=== PATIENT | female | born 1950 | race Caucasian/White ===

== ENCOUNTER → 2018-03-19 | Outpatient (REF) | payer BC, OTHER | LOC: M SFHCPLAZ 17:03 | PROVIDERS: ATTEND Dermatology | DX: C44.320 Squamous cell carcinoma of skin of unspecified parts of face (principal) ==

== ENCOUNTER → 2018-05-05 | Outpatient (REF) | payer OTHER, MEDICARE | LOC: M SFHCPLAZ 09:36 | PROVIDERS: ATTEND Dermatology | DX: D23.39 Other benign neoplasm of skin of other parts of face (principal) ==

== ENCOUNTER → 2018-08-17 | Outpatient (REF) | payer MEDICARE | LOC: M SFHCPLAZ 13:43 | PROVIDERS: ATTEND Dermatology | DX: D22.39 Melanocytic nevi of other parts of face (principal); D22.5 Melanocytic nevi of trunk; L57.0 Actinic keratosis ==

== ENCOUNTER → 2021-08-06 | Outpatient (CLI) | payer MEDICARE ==
[~2021-08-06] MED LIST: ASCO500T PO; BETI1SOL; FISH1CAP26; LUTE6CAP2; META0.52; MONT10TA97; MULT-40; VITA1TAB26; VYZU0.02
== END ==
LOC: M LABSMTC 09:47
PROVIDERS: ATTEND Anesthesiology
DX: Z01.812 Encounter for preprocedural laboratory examination (principal); Z20.822 Contact with and (suspected) exposure to COVID-19

== ENCOUNTER 2021-08-10 06:37 | Day surgery (SDC) | payer MEDICARE ==
[~2021-08-10] VITALS: Ht 171.4 cm; Wt 57.6 kg
[~2021-08-10 06:37] MED LIST changes: +NS 1,000 ML IV ONE
[2021-08-10] MEDS ORDERED: propofoL 200 MG/20 ML VIAL As Ordered ONE (07:31)
[2021-08-10] MEDS ORDERED: LIDOCAINE 2% 100MG/5ML SDV (FOR ANES.) As Ordered ONE (07:31)
[2021-08-10 08:15] VITALS: BP 114/67
== END 2021-08-10 08:24 | disposition home or self-care (01) ==
LOC: M OPP 06:37
PROVIDERS: ATTEND Internal Medicine Gastroenterology
DX: Z12.11 Encounter for screening for malignant neoplasm of colon (principal); K64.0 First degree hemorrhoids; Z79.899 Other long term (current) drug therapy; Z87.19 Personal history of other diseases of the digestive system

== ENCOUNTER → 2021-12-06 | Outpatient (REF) | payer MEDICARE ==
[~2021-12-06] MED LIST changes: -NS 1,000 ML IV ONE
== END ==
LOC: M LAB REF 09:14
PROVIDERS: ATTEND Internal Medicine Gastroenterology
DX: R19.7 Diarrhea, unspecified (principal)

== ENCOUNTER → 2022-01-03 | Outpatient (REF) | payer MEDICARE | LOC: M LAB REF 09:51 | PROVIDERS: ATTEND Internal Medicine Gastroenterology | DX: R19.7 Diarrhea, unspecified (principal) ==

== ENCOUNTER → 2023-03-26 | Outpatient (CLI) | payer MEDICARE ==
[~2023-03-26] MED LIST changes: -BETI1SOL; +TIMO5DRO5
== END ==
LOC: M WHC 13:23
PROVIDERS: ATTEND Nurse Practitioner Adult Health
DX: M85.89 Other specified disorders of bone density and structure, multiple sites (principal)

== ENCOUNTER → 2023-05-08 | Outpatient (CLI) | payer MEDICARE ==
[2023-05-08 13:57] LABS: BLOOD UREA NITROGEN 23 MG/DL (9-23); CARBON DIOXIDE LEVEL 29 MMOL/L (20-31); CHLORIDE LEVEL 109 MMOL/L (98-107); CREATININE FOR GFR 0.71 MG/DL (0.55-1.30); GLOMERULAR FILTRATION RATE > 60.0 (>39); GLUCOSE, FASTING 91 MG/DL (74-106); POTASSIUM SERUM 4.3 MMOL/L (3.5-5.1); SODIUM LEVEL 140 MMOL/L (136-145)
[2023-05-08 14:01] LABS: TOTAL 25(OH) VITAMIN D 41.7 NG/ML (20.0-100.0)
== END ==
LOC: M PLALAB 11:23
PROVIDERS: ATTEND Internal Medicine Endocrinology, Diabetes & Metabolism
DX: M85.89 Other specified disorders of bone density and structure, multiple sites (principal)

== ENCOUNTER → 2024-04-12 | Outpatient (REF) | payer MEDICARE | LOC: M LAB REF 11:55 | PROVIDERS: ATTEND Physician Assistant Medical | DX: B34.9 Viral infection, unspecified (principal) ==